=== PATIENT | male | born 1970 | race Caucasian/White ===

== ENCOUNTER 2016-08-22 19:10 | Emergency (ER) | payer OTHER ==
[~2016-08-22] VITALS: Ht 182.9 cm; Wt 104.5 kg
[2016-08-22 21:13] LABS: HEMATOCRIT 42.1 % (38.0-50.0); MCH 29.8 PG (29.0-34.0); MCHC 32.5 G/DL (30.0-36.0); MCV 91.5 FL (86-99); MEAN PLAT.VOLUME 10.3 uM^3 (9.0-12.4); PLATELET COUNT 210 K/uL (156-360); RBC DIS.WIDTH-CV 12.6 % (11.8-14.6); RBC DIS.WIDTH-SD 42.2 % (39-53); WHITE BLOOD COUNT 13.1 K/uL (4.1-10.2)
[2016-08-22 21:16] LABS: CHLORIDE 105 mEq/L (99-109); POTASSIUM 4.1 mEq/L (3.7-5.4); SODIUM 140 mEq/L (136-147)
[2016-08-22 21:18] LABS: GLUCOSE 92 mg/dL (70-99)
[2016-08-22 21:19] LABS: ANION GAP 8 MEQ/L (2-14)
[2016-08-22 21:22] LABS: GFR ESTIMATE (CALCULATED) > 59 mL/min/
[2016-08-22 21:23] LABS: UREA NITROGEN (BUN) 10 mg/dL (9-23)
[2016-08-22 21:28] LABS: TROP-I INTERPRETATION NEGATIVE; TROPONIN-I < 0.01 ng/mL (0.0-0.30)
[2016-08-22] MEDS ORDERED: ZITHROMAX Z-PA250 MG PO (21:43)
[2016-08-22] MEDS ORDERED: ACETAMINOPHEN-120 ML PO (21:44)
[2016-08-22] MEDS ORDERED: KEFLEX500 MG PO (22:06)
[2016-08-22 22:31] VITALS: BP 113/74
== END 2016-08-22 22:32 | disposition home or self-care (01) ==
LOC: EME 19:10
DX: J02.9 Acute pharyngitis, unspecified (principal); R50.9 Fever, unspecified; D72.829 Elevated white blood cell count, unspecified; F41.9 Anxiety disorder, unspecified; Z72.0 Tobacco use; Z88.0 Allergy status to penicillin
CPT/HCPCS: 71020; 80048; 84484; 85027; 93005; 99281; 99284; J1885; J7030